=== PATIENT | male | born 1995 | race Caucasian/White ===

== ENCOUNTER 2016-04-14 01:37 | Emergency (ER) | payer BC ==
[~2016-04-14] VITALS: Ht 172.7 cm; Wt 63.6 kg
[2016-04-14 01:48] VITALS: TEMP 97.3
[2016-04-14 07:41] VITALS: BP 115/76; PULSE 103
== END 2016-04-14 07:50 | disposition home or self-care (01) ==
LOC: COL.ER 01:37
DX: F10.120 Alcohol abuse with intoxication, uncomplicated (principal); Y90.8 Blood alcohol level of 240 mg/100 ml or more
CPT/HCPCS: J2405; J7030

== ENCOUNTER 2017-06-20 11:30 | Outpatient (RCR) | payer BC | END 2017-06-20 13:13 | disposition home or self-care (01) | LOC: MKS.ESL.PT 11:30 | DX: G54.0 Brachial plexus disorders (principal) ==

== ENCOUNTER 2019-01-20 09:00 | Outpatient (RCR) | payer OTHER | END 2019-02-23 16:28 | disposition home or self-care (01) | LOC: WSC 09:00 | DX: M25.511 Pain in right shoulder (principal) ==